=== PATIENT | female | born 1965 | race Caucasian/White ===

== ENCOUNTER 2024-05-14 14:10 | Outpatient (AMB) | payer BC, SELFPAY ==
[2024-05-14 14:11] VITALS: BP 142/74; PULSE 56; O2SAT 98; BMI 21.6
--- NOTE | 2024-05-14 14:11 | HO.NEPHOV_ITS ---
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 Until few years ago she has been enjoying reasonably good health. In 2019 she had COVID-19 infection which was rather severe and subsequently developed hypertension. At present she is on 3 antihypertensive medications including amlodipine 5 mg, losartan 100 mg and HCTZ 25 mg. Recently she underwent a 24 hour ambulatory blood pressure monitoring and she was unable to complete the test because the readings were very high in the range of 190 mm Hg systolic. She has been monitoring her blood pressure at home and has been wide fluctuation. She is using 2 different blood pressure cuffs with a different cuff size and the accuracy of the readings are questionable. She is physically active. She usually runs and recently completed a 5 mi run [facility] Medical History (Updated 05/14/24 @ 14:59 by Alex Brown MD) HTN (hypertension) Leukopenia Surgical History H/O colonoscopy (~05/2019) History of breast lump/mass excision (~08/2012) Family History Mother Hypertension Father Cancer Review of Systems Const Denies fever(s) and Denies weight loss Card Denies chest pain Resp Denies cough and Denies hemoptysis GI Denies abdominal pain, Denies diarrhea and Denies nausea Musc Denies back pain Neuro Denies focal weakness Physical Exam Vital Signs: Last Vital Signs Pulse 56 05/14/24 14:11 BP 142/74 H 05/14/24 14:11 Pulse Ox 98 05/14/24 14:11 Oxygen Delivery Method Room Air 05/14/24 14:11 BMI result Body Mass Index 21.6 Blood pressure 130/70 mm Hg left upper extremity sitting Blood pressure 130/80 right upper extremity sitting and 120/70 right upper extremity standing. Comfortable Neck supple no JVD. Lungs entry equal no rales. Heart S1-S2 heard no gallop or rub. Abdomen soft nontender. Neuro alert awake oriented. No asterixis. Extremities no edema. Results Reviewed Results Reviewed: Lab results were reviewed Nephrology Results: No Data to Display Assessment & Plan Assessment & Plan (1) HTN (hypertension): Code(s): I10 - Essential (primary) hypertension Category: Medical Plan Pleasant 58-year-old woman with hypertension. Based on the office readings today blood pressure is well controlled. However there has been wide fluctuation in the blood pressure. She was unable to complete the 24 hour ambulatory blood pressure monitoring. My recommendation would be to repeat the 24 hour blood pressure monitoring. However she is not keen on varying the bulky monitor again. I will try to set up by [employer] which should be convenient In the meantime I would continue with the current antihypertensive medications. Discussed importance of low-sodium diet. We will await completion of other workup that has been initiated. I have reassured her and we will see her again in the next few weeks Coding Level of Care Code New Pt Level 4 (95581) Diagnoses HTN (hypertension) I10
--- OUTSIDE RECORDS SUMMARY | 2024-05-14 17:57 | XMS_ITS | Clinical Summary ---
Author Organization [facility] Address [id number] [place] [phone] Care Team Providers Care Crane Manager Name Role Phone Kurtis Rae MD Primary Care Provider Surgical History Surgery Date Site/Laterality Comments COLONOSCOPY PROCEDURE:COLONOSCOPY Medical History Medical History Date Comments Hypertension DX:Hypertension Family History Medical History Relation Name Comments Cancer Father Relation Name Status Comments Father Social History Tobacco Use Types Packs/Day Years Used Date Smoking Tobacco: Never Smokeless Tobacco: Never Alcohol Use Standard Drinks/Week Comments Yes 0 (1 standard drink = 0.6 oz pur e alcohol) Sex and Gender Information Value Date Recorded Sex Assigned at Not on file Gender Identity Not on file Sexual Orientation Not on file Job Start Date Occupation Industry Not on file Not on file Not on file Obstetrics History Last Filed Vital Signs Vital Sign Reading Time Taken Comments Blood Pressure 159/74 03/13/2023 3:08 PM EST Sit ting Left arm Pulse 59 03/13/2023 3:08 PM EST Temperature - - Respiratory Rate - - Oxygen Saturation - - Inhaled Oxygen Concentration - - Weight 65.8 kg (145 lb) 03/13/2023 3:08 PM EST Height - - Body Mass Index - - Plan of Treatment Upcoming Encounters Date Type Department Care Team (Late st Contact Info) Description 06/01/2024 10:40 AM EST Office Visit Gastroenterology - [address] [phone] Ramya Jean-Baptiste, GER[place] [address] [facility] [address] [address] Health Maintenance Due Date Last Done Comments DTaP,Tdap,and Td Vaccines (1 - Tdap) 1985 Hepatitis B Vaccines (1 of 3 - 19+ 3-dose series) 1985 Cervical Cancer Screening: P ap Smear 11/09/1987 Zoster Vaccines (1 of 2) 2016 Breast Cancer Screening 08/26/2020 08/26/2018 Cholesterol Screening (Lipid Panel) 03/13/2022 Colorectal Cancer Screening: Colonoscopy 03/13/2022 Depression Screening 03/13/2022 HIV Screening 03/13/2022 Hepatitis C Screening 03/13/2022 Social Influencers of Health Screening 03/13/2022 Hypertension/CHF/CAD Annual BMP Blood Test 05/19/2023 COVID-19 Vaccine (1 - 2023-2 5 season) 2023 Influenza Vaccine (#1) 2023 HIB Vaccines Aged Out No longer eligi ble based on patient's age to complete this topic HPV Vaccines Aged Out No longer eligi ble based on patient's age to complete this topic Hepatitis A Vaccines Aged Out No long er eligible based on patient's age to complete this topic IPV Vaccines Aged Out No longer eligi ble based on patient's age to complete this topic MMR Vaccines Aged Out No longer eligi ble based on patient's age to complete this topic Meningococcal ACWY Vaccine Aged Out N o longer eligible based on patient's age to complete this topic Pneumococcal Vaccine: Pediat rics (0 to 5 Years) and At-Risk Patients (6 to 64 Years) Aged Out No longer eligi ble based on patient's age to complete this topic RSV Immunization Patients Un sona 20 months Aged Out No longer eligible b ased on patient's age to complete this topic Varicella Vaccines Aged Out No longer eligible based on patient's age to complete this topic Procedures Procedure Name Priority Date/Time Associated Diagnosis Comments EXTERNAL ULTRASOUND REPORT 04/29/2024 ROBE SCREENING DIGITAL Routine 08/26/2018 1:43 PM EDT Encounter for screening mammogram for malignant neoplasm of breast from Last 3 Months or Most Recently Relevant to Health Maintenance Results * External Ultrasound Report (04/29/2024) Anatomical Region Laterality Modality Ultrasound Provider [facility] US PROCEDURE S * ROBE SCREENING DIGITAL (08/26/2018 1:43 PM EDT) Anatomical Region Laterality Modality Mammography 08/26/2018 11:2 0 AM EDT Narrative 08/26/2018 1:43 PM EDT [facility] Diagnostic Imaging Department [address] [place] [id number] Patient: ??CHRIS TEJADA ?/Age/Sex: 1965 - 52 - F Unit#: ??[id number] ? Location/Status: ??SPDIMAM/REG CLI ? Mnemonic/Ordering Site: ??DIGSC/SPMAM Ordering Physician: ??AVNI KOVACS MD [facility] Screening Digital - 08/26/18 - 1148 EXAM: [facility] Screening Digital EXAM DATE AND TIME: 08/26/2018 11:48 AM HISTORY: ??Screening. Right breast biopsy in 2012, pathology benign. COMPARISON: ??01/07/17, 08/04/15, 06/10/14 TECHNIQUE: CC and MLO views of both breasts were obtained using full field digital mammography. Bilateral digital breast tomosynthesis was performed in the MLO projection. 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 TISSUE DENSITY: c. The breasts are heterogeneously dense, which may obscure small masses. FINDINGS: No suspicious masses, grouped microcalcifications, or areas of architectural distortion are seen. Scattered microcalcifications are seen in the anterior aspects of both breasts. The skin and vascularity are unremarkable. IMPRESSION: Stable mammographic appearance of the breasts. ??No evidence of malignancy is seen. A negative mammogram in the presence of a clinically suspicious palpable abnormality does not preclude the possibility of malignancy or alter the indications for biopsy. BI-RADS: ??Category 2: Benign RECOMMENDATION(S): 1: Routine screening mammogram BILATERAL in 1 year. 43593, 55369 3342F, 7020F Dictating Physician: ??BARBIE RODAS MD Electronically Signed by: ??BARBIE RODAS MD Dic Date/Time: ??08/26/18 1342 Sign date/Time: ??08/26/18 1343 Procedure Note Barbie Rodas MD - 04/03/2022 [facility] Diagnostic Imaging Department [address] [place] [address] Patient: CHRIS TEJADA LOUISE /Age/Sex: 1965 - 52 - F Unit#: [id number] Location/Status: [facility] Mnemonic/Ordering Site: [facility] Ordering Physician: AVNI KOVACS MD [facility] Screening Digital - 08/26/18 - 1148 EXAM: [facility] Screening Digital EXAM DATE AND TIME: 08/26/2018 11:48 AM HISTORY: Screening. Right breast biopsy in 2012, pathology benign. COMPARISON: 01/07/17, 08/04/15, 06/10/14 TECHNIQUE: CC and MLO views of both breasts were obtained using fullfield digital mammography. Bilateral digital breast tomosynthesis was performedin the MLO projection. 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 TISSUE DENSITY: c. The breasts are heterogeneously dense, which mayobscure small masses. FINDINGS: No suspicious masses, grouped microcalcifications, or areas ofarchitectural distortion are seen. Scattered microcalcifications are seen in theanterior aspects of both breasts. The skin and vascularity are unremarkable. IMPRESSION: Stable mammographic appearance of the breasts. No evidence of malignancyis seen. A negative mammogram in the presence of a clinically suspicious palpable abnormality does not preclude the possibility of malignancy or alter the indications for biopsy. BI-RADS: Category 2: Benign RECOMMENDATION(S): 1: Routine screening mammogram BILATERAL in 1 year. 25019, [id number] 3342F, 7025F Dictating Physician: BARBIE RODAS MD Electronically Signed by: BARBIE RODAS MD Dic Date/Time: 08/26/18 1342 Sign date/Time: 08/26/18 1343 Avni Kovacs MD IMG BI PROCEDURES from Last 3 Months or Most Recently Relevant to Health Maintenance Care Teams Crane Manager Relationship Specialty Start Date End Date Kurtis Rae MD [address] [place] [id number] PCP - General Internal Medicine 05/13/24
--- OUTSIDE RECORDS SUMMARY | 2024-05-14 17:57 | XMS_ITS | Clinical Summary ---
Author Organization [facility] Address [address] [place] [address] Care Team Providers Care Screwhead Polisher Name Role Phone Kurtis Rae MD Primary Care Provider Allergies No known active allergies Medications Medication Sig Dispensed Refills Start Date End Date Status hydroCHLOROthiazide (HYDRODIURIL) tablet 25 mg 0 02/20/2021 Active losartan (COZAAR) 100 MG tablet 0 02/14/2021 Active amLODIPine (NORVASC) tablet 5 mg Take 1 tablet (5 mg total) by mouth daily. 0 Active Active Problems Problem Noted Date Diagnosed Date Leukopenia 03/13/2023 Arthralgia of both hands 03/13/2023 Essential hypertension 06/07/2020 Family History Medical History Relation Name Comments Cancer Father Relation Name Status Comments Father Social History Tobacco Use Types Packs/Day Years Used Date Smoking Tobacco: Never Smokeless Tobacco: Never Alcohol Use Standard Drinks/Week Comments Yes 0 (1 standard drink = 0.6 oz pur e alcohol) socially Sex and Gender Information Value Date Recorded Sex Assigned at Not on file Gender Identity Not on file Sexual Orientation Not on file Job Start Date Occupation Industry Not on file Not on file Not on file Last Filed Vital Signs Vital Sign Reading Time Taken Comments Blood Pressure 159/74 03/13/2023 3:08 PM EST Pulse 59 03/13/2023 3:08 PM EST Temperature 36.7 ??C (98.1 ??F) 03/13/2023 3:08 PM ES T Respiratory Rate - - Oxygen Saturation 100% 03/13/2023 3:08 PM EST Inhaled Oxygen Concentration - - Weight 65.8 kg (145 lb) 03/13/2023 3:08 PM EST Height 176.5 cm (5' 9.5 ) 03/27/2021 11:37 AM ES T Body Mass Index 21.11 03/27/2021 11:37 AM EST Plan of Treatment Health Maintenance Due Date Last Done Comments Hepatitis B Vaccines (1 of 3 - 3-dose series) 1965 Hepatitis C Screening 1965 COVID-19 Vaccine (#1) 05/11/1967 Depression Screening 1978 Preventative Health Evaluation 1984 DTap / Tdap / Td (1 - Tdap) 1985 Cervical Cancer Screening (P ap Smear) 11/09/1987 Colon Cancer Screening (Colonoscopy) 11/09/2011 Breast Cancer Screening (Mammogram) 2016 Shingrix-Zoster Vaccine (1 of 2) 2016 Influenza Vaccine (#1) 2023 Pneumococcal Vaccine Aged Out No long er eligible based on patient's age to complete this topic RSV Ped < 20 months Aged Out No longe r eligible based on patient's age to complete this topic Care Teams Screwhead Polisher Relationship Specialty Start Date End Date Kurtis Rae MD [address] [facility] [address] [place] [address] PCP - General Internal Medicine 02/21/21
--- OUTSIDE RECORDS SUMMARY | 2024-05-14 17:57 | XMS_ITS | Clinical Summary ---
Author Organization [facility] Address [address] [facility] [phone] Phone Care Team Providers Care Manager Maritime Name Role Phone Kurtis Rae MD Primary Care Provider Allergies No known active allergies Medications losartan (COZAAR) 100 MG tablet Take 1 tablet by mouth 1 (one) time each day 02/14/2021 Active hydroCHLOROthia zide 25 MG tablet Take 0.5 tablets by mouth 1 (one) time each day 02/20/2021 Active Active Problems Problem Noted Date Diagnosed Date Hypertension 01/17/2021 Essential hypertension 06/07/2020 Family History Medical History Relation Comments Cancer Father Hypertension Mother Relation Status Comments Father Mother Social History Tobacco Use Types Packs/Day Years Used Date Smoking Tobacco: Never Smokeless Tobacco: Never Tobacco Cessation:Counseling Given: Not Answered Alcohol Use Standard Drinks/Week Comments Yes 0 (1 standard drink = 0.6 oz pure alcohol) Alcoholic Drinks/day: Occasional social drink Comments Unknown Sex and Gender Information Value Date Recorded Sex Assigned at Not on file Legal Sex Female 4:58 PM EST Gender Identity Not on file Sexual Orientation Not on file Last Filed Vital Signs Vital Sign Reading Time Taken Comments Blood Pressure 140/80 01/01/2022 2:46 PM EDT Pulse 60 01/17/2021 3:12 PM EDT Temperature - - Respiratory Rate - - Oxygen Saturation 96% 09/06/2020 2:13 PM EDT Inhaled Oxygen Concentration - - Weight 70.1 kg (154 lb 9.6 oz) 01/01/2022 2:46 P M EDT Height 175.3 cm (5' 9 ) 05/03/2020 12:00 PM EST Body Mass Index 22.83 05/03/2020 12:00 PM EST Plan of Treatment Health Maintenance Due Date Last Done Comments Breast Cancer Screening 1965 Hepatitis B Vaccine (1 of 3 - 19+ 3-dose series) 1985 Colorectal Cancer Screening: Annual FOBT 11/09/2015 Colorectal Cancer Screening: Colonoscopy 11/09/2015 Colorectal Cancer Screening: Sigmoidoscopy 11/09/2015 Influenza Vaccine (#1) 2023 Pneumococcal Vaccine: Pediat rics (0 to 5 Years) and At-Risk Patients (6 to 64 Years) Aged Out No longer eligible b ased on patient's age to complete this topic Insurance [facility] Care Teams Manager Maritime Relationship Specialty Start Date End Date Kurtis Rae MD [address] [facility] [place] [address] PCP - General Internal Medicine 06/07/20
== END 2024-05-14 14:40 | disposition home or self-care (01) ==
PROVIDERS: PCP Internal Medicine; Referring Provider Internal Medicine; Visit Provider Internal Medicine Hypertension Specialist
DX: I10 Essential (primary) hypertension (principal)
CPT/HCPCS: 99204

== ENCOUNTER → 2024-05-14 14:10 | Outpatient (BNVA) | payer BC, SELFPAY | PROVIDERS: PCP Internal Medicine; Referring Provider Internal Medicine; Visit Provider Internal Medicine Hypertension Specialist ==

== ENCOUNTER 2024-07-02 10:20 | Outpatient (AMB) | payer BC, SELFPAY ==
--- NOTE | 2024-07-02 10:22 | HO.NEPHOV ---
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 Until few years ago she has been enjoying reasonably good health. In 2019 she had COVID-19 infection which was rather severe and subsequently developed hypertension. At present she is on 3 antihypertensive medications including amlodipine 5 mg, losartan 100 mg and HCTZ 25 mg. Recently she underwent a 24 hour ambulatory blood pressure monitoring and she was unable to complete the test because the readings were very high in the range of 190 mm Hg systolic. She has been monitoring her blood pressure at home and has been wide fluctuation. She is using 2 different blood pressure cuffs with a different cuff size and the accuracy of the readings are questionable. She is physically active. She usually runs and recently completed a 5 mi run 07/02/2024. [place] has been taking amlodipine losartan and hydrochlorothiazide in the morning. She goes for run in the morning and she has been experiencing lightheadedness. She has monitored her blood pressure at home and no documented hypotensive episodes. She had a mechanical fall while running but this was not associated with lightheadedness. [facility] Medical History (Updated 05/14/24 @ 14:59 by Alex Brown MD) HTN (hypertension) Leukopenia Surgical History H/O colonoscopy (~05/2019) History of breast lump/mass excision (~08/2012) Family History Mother Hypertension Father Cancer Physical Exam Vital Signs: Last Vital Signs Pulse 66 07/02/24 10:23 BP 132/60 07/02/24 10:23 Pulse Ox 98 07/02/24 10:23 Oxygen Delivery Method Room Air 07/02/24 10:23 BMI result Body Mass Index 21.6 Supine blood pressure 120/70 Sitting blood pressure 120/60 standing blood pressure 120/60. Asymptomatic Comfortable Neck supple no JVD. Lungs entry equal no rales. Heart S1-S2 heard no gallop or rub. Abdomen soft nontender. Neuro alert awake oriented. No asterixis. Extremities no edema. Results Reviewed Nephrology Results: No Data to Display Assessment & Plan Assessment & Plan (1) HTN (hypertension): Code(s): I10 - Essential (primary) hypertension Category: Medical Plan Pleasant 58-year-old woman with hypertension. Based on the office readings today blood pressure is well controlled. However there has been wide fluctuation in the blood pressure. She was unable to complete the 24 hour ambulatory blood pressure monitoring. My recommendation would be to repeat the 24 hour blood pressure monitoring. However she is not keen on varying the bulky monitor again. I will try to set up by [employer] which should be convenient I am still waiting for the approval of [employer]. In the meantime I would continue with the current antihypertensive medications. I would suggest to switch losartan to be taken in the evening rather than in the morning ; continue with the amlodipine and HCTZ in the morning. This would help to minimize the drop in blood pressure when she is running Coding Level of Care Code Est Pt Level 3 (37662) Diagnoses HTN (hypertension) I10
[2024-07-02 10:23] VITALS: BP 132/60; PULSE 66; O2SAT 98; BMI 21.6
--- OUTSIDE RECORDS SUMMARY | 2024-07-02 11:45 | XMS_ITS | Clinical Summary ---
Author Organization [facility] Address [address] [place] [address] Care Team Providers Care Banbury Mill Operator Name Role Phone Kurtis Rae MD Primary [...] age to complete this topic Care Teams Banbury Mill Operator Relationship Specialty Start Date End Date Kurtis Rae MD [address] [facility] [address] [place] [address] PCP - General Internal Medicine 02/21/21
--- OUTSIDE RECORDS SUMMARY | 2024-07-02 11:45 | XMS_ITS | Clinical Summary ---
Author Organization [facility] Address [address] [place] [address] Phone Care Team Providers Care Reflector Driller And Deburrer Name Role Phone Kurtis Rae MD Primary Care Provider Allergies No known active allergies Encounters Date Type Department Care Team Description 06/01/2024 10:40 AM EST Office Visit Gastroenterology - [address] [address] Ramya Jean-Baptiste, GERRI Liver lesion (Primary Dx) from Last 3 Months Surgical History Surgery Date Site/Laterality Comments COLONOSCOPY PROCEDURE:COLONOSCOPY Medical History Medical History Date Comments Hypertension DX:Hypertension Family History Medical History Relation Name Comments Cancer Father Relation Name Status Comments Father Social History Tobacco Use Types Packs/Day Years Used Date Smoking Tobacco: Never Smokeless Tobacco: Never Alcohol Use Standard Drinks/Week Comments Yes 0 (1 standard drink = 0.6 oz pur e alcohol) Comments Unknown Sex and Gender Information Value Date Recorded Sex Assigned at Not on file Legal Sex Female 11:58 AM EST Gender Identity Not on file Sexual Orientation Not on file Obstetrics History Last Filed Vital Signs Vital Sign Reading Time Taken Comments Blood Pressure 159/74 03/13/2023 3:08 PM EST Sitting Left arm Pulse 59 03/13/2023 3:08 PM EST Temperature - - Respiratory Rate - - Oxygen Saturation - - Inhaled Oxygen Concentration - - Weight 67.3 kg (148 lb 6.4 oz) 06/01/2024 10:47 AM EST Height 175.3 cm (5' 9 ) 06/01/2024 10:4 7 AM EST Body Mass Index 21.91 06/01/2024 10:47 AM EST Plan of Treatment Health Maintenance Due Date Last Done Comments DTaP,Tdap,and Td Vaccines (1 - Tdap) 1985 Hepatitis B Vaccines (1 of 3 - 19+ 3-dose series) 1985 Pneumococcal Vaccine: 50+ Years (1 of 2 - PCV) 1985 Pneumococcal Vaccine: Pediatrics (0 to 5 Years) and At-Risk Patients (6 to 64 Years) (1 of 2 - PCV) 1985 Cervical Cancer Screening: Pap Smear 11/09/1987 Breast Cancer Screening 08/26/2020 08/26/2018, 08/03 Zoster Vaccines (2 of 2) 03/19/2021 01/22/2021 Cholesterol Screening (Lipid Panel) 03/13/2022 Depression Screening 03/13/2022 HIV Screening 03/13/2022 Hepatitis C Screening 03/13/2022 Social Influencers of Health Screening 03/13/2022 Hypertension/CHF/CAD Annual BMP Blood Test 05/19/2023 COVID-19 Vaccine ( season) 2023 08/21/2021, 08/11/2020, 07/14/2020, Additional history exists Influenza Vaccine (#1) 2023 Colorectal Cancer Screening: Colonoscopy 05/20/2029 05/20/2019 HIB Vaccines Aged Out No longer eligi [...] patient's age to complete this topic Meningococcal B Vacine Aged Out No lo nger eligible based on patient's age to complete this topic RSV Immunization Patients Under 20 months Aged Out No longer eligible based on patient's age to complete this topic Varicella Vaccines Aged Out No longer eligible based on patient's age to complete this topic Procedures Procedure Name Priority Date/Time Associated Diagnosis Comments EXTERNAL ULTRASOUND REPORT 04/29/2024 COLONOSCOPY Routine 05/20/2019 3:18 PM EST TARA SCREENING DIGITAL Routine 08/26/2018 1:43 PM EDT Encounter for screening mammogram for malignant neoplasm of breast from Last 3 Months or Most Recently Relevant to Health Maintenance Results * External Ultrasound Report (04/29/2024) Anatomical Region Laterality Modality Ultrasound us Provider [facility] IMG US PROCEDURES Final Result * COLONOSCOPY (05/20/2019 3:18 PM EST) Anatomical Region Laterality Modality Endoscopy Historical Provider MD VILLEDA~PROCEDURE ORDERABLES F inal Result * [facility] SCREENING DIGITAL (08/26/2018 1:43 PM EDT) Anatomical Region Laterality Modality Mammography 08/26/2018 11:2 0 AM EDT Narrative 08/26/2018 1:[address] [facility] Diagnostic Imaging Department [address] [place], [place] [id number] Patient: ??CAPRI TEJADAE ?/Age/Sex: 1965 - 52 - F Unit#: ??[id number] ? Location/Status: ??SPDIMAM/REG CLI ? Mnemonic/Ordering Site: ??DIGSC/SPMAM Ordering Physician: ??MAC KOVACS MD Tara Screening Digital - 08/26/18 - 1148 EXAM: [facility] Screening Digital EXAM DATE AND TIME: 08/26/2018 11:48 AM HISTORY: ??Screening. Right breast biopsy in 2013, pathology benign. COMPARISON: ??01/07/17, 08/04/15, 06/10/14 TECHNIQUE: CC and MLO views of both breasts were obtained using full field digital mammography. Bilateral digital breast tomosynthesis was performed in the MLO projection. Computer aided detection with the ComVibe 7.2-H was employed. TISSUE DENSITY: c. The [...] Routine screening mammogram BILATERAL in 1 year. [address]756, 73198 3342F, 7025F Dictating Physician: ??BARBIE RODAS MD Electronically Signed by: ??BARBIE RODAS MD Dic Date/Time: ??08/26/18 1342 Sign date/Time: ??08/26/18 1343 Procedure Note Barbie Rodas MD - 04/03/2022 [facility] Diagnostic Imaging Department [address] [place] [address] Patient: TERRELLGINO /Age/Sex: 1965 - 52 - F Unit#: [id number] [facility] CLI Mnemonic/Ordering Site: [facility] Ordering Physician: MAC KOVACS MD [facility] Screening Digital - 08/26/18 - 1148 EXAM: [facility] Screening Digital EXAM DATE AND TIME: 08/26/2018 11:48 AM HISTORY: Screening. Right breast biopsy in 2012, pathology benign. COMPARISON: 01/07/17, 08/04/15, 06/10/14 TECHNIQUE: CC and MLO views of both breasts were obtained using fullfield digital mammography. Bilateral digital breast tomosynthesis was performedin the MLO projection. Computer aided detection with the OOYYO.2-X2IMPACTas employed. TISSUE DENSITY: c. The breasts are [...] Routine screening mammogram BILATERAL in 1 year. 18517, 78898 3342F, 7025F Dictating Physician: BARBIE RODAS MD Electronically Signed by: BARBIE RODAS MD Dic Date/Time: 08/26/18 1342 Sign date/Time: 08/26/18 1343 Mac Kovacs MD IMG BI PROCEDURES Final Result from Last 3 Months or Most Recently Relevant to Health [place] [id number] [facility] Care Teams Reflector Driller And Deburrer Relationship Specialty Start Date End Date Kurtis Rae MD [address] [place] [address] PCP - General Internal Medicine 05/13/24
--- OUTSIDE RECORDS SUMMARY | 2024-07-02 11:45 | XMS_ITS | Continuity of Care Document ---
Author Organization [facility] Address [address] [place] [address]- Care Team Providers Care Subgrade Roller Operator Name Role Phone Kurtis Rae MD Primary Care Physician Encounter [facility] Date(s): 05/26/24 - 06/25/24 [facility] [address] [place], [place] [address] Attending Physician: Admtr, Ar8 Admitting Physician: Admtr Ar8 Referring Physician: Admtr, Ar8 Encounter Type: Triage Allergies, Adverse Reactions, Alerts No Known Allergies Patient Care team information Care Team Personnel Name: Kurtis Rae MD Position: [facility] Outreach Member Role: PCP Address: [address] [place] [address] Telecom: Care Team Related Persons Name: PANCHO TEJADA Insurance Providers Guarantor name: CHRIS TEJADA Health Plan Information #: 1 Payer: HMO BLUE IN NETWORK Member Number: NA Policy Number: NA Group Number: NA
--- OUTSIDE RECORDS SUMMARY | 2024-07-02 11:46 | XMS_ITS | Clinical Summary ---
Author Organization [facility] Address [address] [facility] [address] [place] [address] Phone Care Team Providers Care Security Program Manager Name Role Phone Kurtis Rae MD [...] patient's age to complete this topic Insurance [facility] Care Teams Security Program Manager Relationship Specialty Start Date End Date Kurtis Rae MD [address] [facility] [place] [address] PCP - General Internal Medicine 06/07/20
== END 2024-07-02 10:46 | disposition home or self-care (01) ==
LOC: HO.HKA 10:21
PROVIDERS: PCP Internal Medicine; Visit Provider Internal Medicine Hypertension Specialist
DX: I10 Essential (primary) hypertension (principal)
CPT/HCPCS: 99213

== ENCOUNTER 2024-11-10 10:41 | Outpatient (AMB) | payer BC, SELFPAY ==
[2024-11-10 10:48] VITALS: BP 174/66; PULSE 64; O2SAT 99; BMI 21.0
--- NOTE | 2024-11-10 10:48 | HO.NEPHOV_ITS ---
Vital Signs 11/10/24 10:48 Height 5 ft 9 in Weight 142 lb BMI 21.0 BP 174/66 H Blood Pressure Location Rt brachial Position Sitting Pulse 64 Pulse Source Pulse Oximeter Pulse Oximetry (%) 99 Oxygen Delivery Method Room Air Intake Visit Reasons: FU Boiler/Chiller Operator Required: No Accompanied by: Self / Same As Patient Allergies No Known Allergies Allergy (Verified 11/10/24 10:54) Medication List - Last Reconciled 11/10/24 by Alex Brown MD amlodipine 5 mg PO DAILY hydrochlorothiazide 25 mg PO DAILY losartan 100 mg PO DAILY magnesium oxide 400 mg PO DAILY HPI Comments Details: 58-year-old woman with history of hypertension. Until few years ago she has been enjoying reasonably good health. In 2019 she had COVID-19 infection which was rather severe and subsequently developed hypertension. At present she is on 3 antihypertensive medications including amlodipine 5 mg, losartan 100 mg and HCTZ 25 mg. Recently she underwent a 24 hour ambulatory blood pressure monitoring and she was unable to complete the test because the readings were very high in the range of 190 mm Hg systolic. She has been monitoring her blood pressure at home and has been wide fluctuation. She is using 2 different blood pressure cuffs with a different cuff size and the accuracy of the readings are questionable. She is physically active. She usually runs and recently completed a 5 mi run 07/02/2024. Capri has been taking amlodipine losartan and hydrochlorothiazide in the morning. She goes for run in the morning and she has been experiencing lightheadedness. She has monitored her blood pressure at home and no documented hypotensive episodes. She had a mechanical fall while running but this was not associated with l ightheadedness. 11/10/2024 Overall doing well. Home blood pressure readings are acceptable. Office readings elevated today. She has been taking HCTZ losartan and amlodipine in the morning [facility] Medical History (Updated 05/14/24 @ 14:59 by Alex Brown MD) HTN (hypertension) Leukopenia Surgical History H/O colonoscopy (~05/2019) History of breast lump/mass excision (~08/2012) Family History Mother Hypertension Father Cancer Physical Exam Vital Signs: Last Vital Signs Pulse 64 11/10/24 10:48 BP 174/66 H 11/10/24 10:48 Pulse Ox 99 11/10/24 10:48 Oxygen Delivery Method Room Air 11/10/24 10:48 BMI result Body Mass Index 21.0 Comfortable Neck supple no JVD. Lungs entry equal no rales. Heart S1-S2 heard no gallop or rub. Abdomen soft nontender. Neuro alert awake oriented. No asterixis. Extremities no edema. Assessment & Plan Assessment & Plan (1) HTN (hypertension): Code(s): I10 - Essential (primary) hypertension Category: Medical Plan Pleasant 58-year-old woman with hypertension. Based on the office readings today blood pressure is well controlled. However there has been wide fluctuation in the blood pressure. She was unable to complete the 24 hour ambulatory blood pressure monitoring. My recommendation would be to repeat the 24 hour blood pressure monitoring. However she is not keen on varying the bulky monitor again. I will try to set up by [facility] which should be convenient I am still waiting for the approval of [employer] [facility]. In the meantime I would continue with the current antihypertensive medications. I would suggest to switch losartan to be taken in the evening rather than in the morning ; continue with the amlodipine and HCTZ in the morning. This would help to minimize the drop in blood pressure when she is running 11/10/2024. Obtain 24 hour blood pressure monitoring with by beat and we will decide on antihypertensive medications. Orders: Orders AMB 24 HR B/P Monitor PLACEMENT Today I10 - Essential (primary) hypertension Coding Level of Care Code Est Pt Level 4 (02348) Diagnoses HTN (hypertension) I10
--- OUTSIDE RECORDS SUMMARY | 2024-11-10 11:49 | XMS_ITS | Clinical Summary ---
Author Organization [facility] Address [address] [facility] [address] [place] [address] Phone Care Team Providers Care [place] Seamer Name Role Phone Kurtis Rae MD Primary Care Provider [phone] Allergies No known active allergies Medications losartan [...] (1 of 3 - 19+ 3-dose series) 11/08 Colorectal Cancer Screening: Annual FOBT 11/09/2015 Colorectal Cancer Screening: Colonoscopy 11/09/2015 Colorectal Cancer Screening: Sigmoidoscopy 11/09/2015 Pneumococcal Vaccine: 50+ Years (1 of 1 - PCV) 017 Influenza Vaccine (#1) 2024 Insurance [facility] Care Teams [place] Seamer Relationship Specialty Start Date End Date Kurtis Rae MD [address] [place] [address] PCP - General Internal Medicine 06/07/20
--- OUTSIDE RECORDS SUMMARY | 2024-11-10 11:49 | XMS_ITS | Clinical Summary ---
Author Organization [facility] Address [address] [place] [address] Phone Care Team Providers Care Supervisor Carbon Paper Coating Name Role Phone Kurtis Rae MD Primary Care Provider Social History Tobacco Use Types Packs/Day Years Used Date Smoking Tobacco: Never Assessed Comments Unknown Sex and Gender Information Value Date Recorded Sex Assigned at Not on file Legal Sex Female 7:58 PM EST Gender Identity Not on file Sexual Orientation Not on file Plan of Treatment Not on file Medical Devices Not on file Insurance [facility] [employer] [facility] H[facility] POS [employer] [facility] HMO [place] BL[place] Care Teams Supervisor Carbon Paper Coating Relationship Specialty Start Date End Date Kurtis Rae MD [address] [place] [address] PCP - General 10/13/13 Additional Source Comments The information contained in this document represents components of the legal health record. It is not the complete legal health record.[facility]
--- OUTSIDE RECORDS SUMMARY | 2024-11-10 11:49 | XMS_ITS | Clinical Summary ---
Author Organization [facility] Address [address] [place] [address] Care Team Providers Care Call Center Support Consultant Name Role Phone Kurtis Rae MD Primary Care Provider [phone] Allergies No known active allergies Medications Medication [...] 59 03/13/2023 3:08 PM EST Temperature 36.7 C (98.1 F) 03/13/2023 3:08 PM EST Respiratory Rate - - Oxygen Saturation 100% [...] (1 of 2) 2016 Influenza Vaccine (#1) 2024 Pneumococcal Vaccine Aged Out No long er eligible based on patient's age to complete this topic RSV Ped < 20 months Aged Out No longe r eligible based on patient's age to complete this topic Care Teams Call Center Support Consultant Relationship Specialty Start Date End Date Kurtis Rae MD [address] [facility] [address] [place] [address] PCP - General Internal Medicine 02/21/21
--- OUTSIDE RECORDS SUMMARY | 2024-11-10 11:49 | XMS_ITS | Clinical Summary ---
Author Organization [facility] Address [address] [place] [address] Phone Care Team Providers Care Photoresist Contact Printer Name Role Phone Kurtis Rae MD Primary Care Provider Allergies No known active allergies Encounters Date Type Department Care Team Description 10/05/2024 Telephone Gastroenterology - [address] [address] Stefany Min MD MISSING INFORMATION from Last 3 Months Surgical History Surgery [...] Years (1 of 2 - PCV) 1985 Cervical Cancer Screening: Pap Smear 11/09/1987 Breast Cancer Screening 08/26/2020 08/26/2018, 08/03 Zoster Vaccines (2 of 2) 03/19/2021 01/22/2021 Cholesterol Screening (Lipid Panel) 03/13/2022 HIV Screening 03/13/2022 Hepatitis C Screening 03/13/2022 Social Influencers of Health Screening 03/13/2022 Hypertension/CHF/CAD Annual BMP Blood Test 05/19/2023 COVID-19 Vaccine ( season) 2023 08/21/2021, 08/11/2020, 07/14/2020, Additional history exists Depression Screening 04/15/2024 Influenza Vaccine (#1) 2024 Colorectal Cancer Screening: Colonoscopy 05/20/2029 05/20/2019 HIB [...] age to complete this topic Meningococcal B Vaccine Aged Out No l onger eligible based on patient's age to complete this topic RSV Immunization Patients Under 20 months Aged Out No longer eligible based on patient's age to complete this topic Varicella Vaccines Aged Out No longer eligible based on patient's age to complete this topic Procedures Procedure Name Priority Date/Time Associated Diagnosis Comments COLONOSCOPY Routine 05/20/2019 3:18 PM EST ROBE SCREENING DIGITAL Routine 08/26/2018 1:43 PM EDT Encounter for screening mammogram for malignant neoplasm of breast from Last 3 Months or Most Recently Relevant to Health Maintenance Results * COLONOSCOPY (05/20/2019 3:18 PM EST) Anatomical Region Laterality Modality Endoscopy us Historical Provider GI~PROCEDURE ORDERABLES F inal Result * [facility] SCREENING DIGITAL (08/26/2018 1:43 PM EDT) Anatomical Region Laterality Modality Mammography 08/26/2018 11:2 0 AM EDT Narrative 08/26/2018 1:43 PM EDT [facility] Diagnostic Imaging Department [address] [place] [address] Patient: CHRIS TEJADA /Age/Sex: 1965 - 52 - F Unit#: [id number] Location/Status: [facility] CLI [facility]: AVNI KOVACS MD [facility] Screening Digital - 08/26/18 - 1148 EXAM: [facility] Screening Digital EXAM DATE AND TIME: 08/26/2018 11:48 AM HISTORY: Screening. Right breast biopsy in 2012, pathology benign. COMPARISON: 01/07/17, 08/04/15, 06/10/14 TECHNIQUE: CC and MLO views of both breasts were obtained using full field digital mammography. Bilateral digital breast tomosynthesis was performed in the MLO projection. Computer aided detection with the Cannae 7.2-H was employed. TISSUE DENSITY: c. The breasts are heterogeneously dense, which may obscure small masses. FINDINGS: No suspicious masses, grouped microcalcifications, or areas of architectural distortion are seen. Scattered microcalcifications are seen in the anterior aspects of both breasts. The skin and vascularity are unremarkable. IMPRESSION: Stable mammographic appearance of the breasts. No evidence of malignancy is seen. A negative mammogram in the presence of a clinically suspicious palpable abnormality does not preclude the possibility of malignancy or alter the indications for biopsy. BI-RADS: Category 2: Benign RECOMMENDATION(S): 1: Routine screening mammogram BILATERAL in 1 year. [address]2487, 14942 3342F, 7025F Dictating Physician: BARBIE RODAS MD Electronically Signed by: BARBIE RODAS MD Dic Date/Time: 08/26/18 1342 Sign date/Time: 08/26/18 1343 Procedure Note Barbie Rodas MD - 04/03/2022 [facility] Diagnostic Imaging Department [address] [place] [address] Patient: CHRIS TEJADA /Age/Sex: 1965 - 52 - F Unit#: [id number] Location/Status: [facility] Mnemonic/Ordering Site: [facility] Ordering Physician: AVNI KOVACS MD [facility] Screening Digital - 08/26/18 - 1148 EXAM: [facility] Screening Digital EXAM DATE AND TIME: 08/26/2018 11:48 AM HISTORY: Screening. Right breast biopsy in 2012, pathology benign. COMPARISON: 01/07/17, 08/04/15, 06/10/14 TECHNIQUE: CC and MLO views of both breasts were obtained using fullfield digital mammography. Bilateral digital breast tomosynthesis was performedin the MLO projection. Computer aided detection with the [employer] 7.2-Hwas employed. TISSUE DENSITY: c. The breasts [...] Routine screening mammogram BILATERAL in 1 year. 23438, 69209 3342F, 7025F Dictating Physician: BARBIE RODAS MD Electronically Signed by: BARBIE RODAS MD Dic Date/Time: 08/26/18 1342 Sign date/Time: 08/26/18 1343 Avni Kovacs MD IMG BI PROCEDURES Final Result from Last 3 Months or Most Recently Relevant to Health Maintenance Insurance [facility] Care Teams Photoresist Contact Printer Relationship Specialty Start Date End Date Kurtis Rae MD [address] [place] [address] PCP - General Internal Medicine 05/13/24
== END 2024-11-10 11:20 | disposition home or self-care (01) ==
LOC: HO.HKA 10:43
PROVIDERS: PCP Internal Medicine; Visit Provider Internal Medicine Hypertension Specialist
DX: I10 Essential (primary) hypertension (principal)
CPT/HCPCS: 99214

== ENCOUNTER → 2024-11-11 10:50 | Outpatient (BNVA) | payer BC, SELFPAY | PROVIDERS: PCP Internal Medicine; Visit Provider Internal Medicine Hypertension Specialist | DX: I10 Essential (primary) hypertension (principal) | CPT/HCPCS: 93786; 93788 ==

== ENCOUNTER 2024-11-25 11:28 | Outpatient (AMB) | payer BC, SELFPAY ==
--- NOTE | 2024-11-25 11:29 | A.OFFVIS_ITS ---
Intake Visit Reasons: Hypertension Allergies No Known Allergies Allergy (Verified 11/10/24 10:54) HPI Comments Details: Follow up for hypertension PFSH Medical History (Updated 05/14/24 @ 14:59 by Alex Brown MD) HTN (hypertension) Leukopenia Surgical History H/O colonoscopy (~05/2019) History of breast lump/mass excision (~08/2012) Family History Mother Hypertension Father Cancer Office Procedures 24 B/P Monitor Interpretation Details: Day time Average Night time Average 24 hr Average Well controlled HTN No change in meds NO [facility] CPT: 39545 24 Hour Blood Pressure Monitor Reading Procedure code (CPT) selection complete Telehealth Telehealth Telehealth Platform: Telephone Location of patient: other Telehealth method: voice only Patient verbally consented to treatment: Yes Patient verbally consented to billing insurance company: Yes Patient informed of any privacy concerns related to visit: Yes Minutes spent on Phone/Video with Pt.: 5 Results Reviewed Results Reviewed: ABP and results reviewed Assessment & Plan Assessment & Plan (1) HTN (hypertension): Code(s): I10 - Essential (primary) hypertension Category: Medical Plan Switch to Exforge HCT Orders: Orders AMB 24 HR B/P Monitor INTERPRETATION 11/11/24 I10 - Essential (primary) hypertension Coding Level of Care Code Est Pt Level 2 (97120) Diagnoses HTN (hypertension) I10 CPT Codes - CPT: 74042 24 Hour Blood Pressure Monitor Reading ([id number]) Time Spent (min) 9
--- OUTSIDE RECORDS SUMMARY | 2024-11-25 12:28 | XMS_ITS | Clinical Summary ---
Author Organization [facility] Address [address] [place] [address] Care Team Providers Care Talking Books Library Clerk Name Role Phone Kurtis Rae MD Primary [...] age to complete this topic Care Teams Talking Books Library Clerk Relationship Specialty Start Date End Date Kurtis Rae MD [address] [facility] [address] [place] [address] PCP - General Internal Medicine 02/21/21
--- OUTSIDE RECORDS SUMMARY | 2024-11-25 12:28 | XMS_ITS | Clinical Summary ---
Author Organization [facility] Address [address] [facility] [address] [place] [address] Phone Care Team Providers Care Catholic Priest Name Role Phone Kurtis Rae MD Primary [...] PCV) 017 Influenza Vaccine (#1) 2024 Insurance [facility] Care Teams Catholic Priest Relationship Specialty Start Date End Date Kurtis Rae MD [address] [place] [address] PCP - General Internal Medicine 06/07/20
--- OUTSIDE RECORDS SUMMARY | 2024-11-25 12:28 | XMS_ITS | Clinical Summary ---
Author Organization [facility] [address] Address [address] [place] [address] Phone Care Team Providers Care Optical Instrument Repairer Name Role Phone Kurtis Rae MD Primary Care Provider [phone] Allergies No known active allergies Encounters Date Type Department Care Team Description 10/05/2024 Telephone Gastroenterology - [address] [address] Stefany Min MD MISSING INFORMATION [...] Provider GI~PROCEDURE ORDERABLES F inal Result * [facility] SCREENING DIGITAL (08/26/2018 1:43 PM EDT) Anatomical Region Laterality Modality Mammography 08/26/2018 11:2 0 AM EDT Narrative 08/26/2018 1:43 PM EDT [facility] Diagnostic Imaging Department [address] [place] [id number] Patient: CHRIS TEJADA /Age/Sex: 1965 - 52 - F Unit#: [id number] Location/Status: [facility] CLI Mnemonic[facility] Ordering Physician: AVNI KOVACS MD [facility] Screening Digital - 08/26/18 - 1148 EXAM: [facility] Screening Digital EXAM DATE AND TIME: 08/26/2018 11:48 AM HISTORY: Screening. Right breast biopsy in 2012, pathology benign. COMPARISON: 01/07/17, 08/04/15, 06/10/14 TECHNIQUE: CC and MLO views of both breasts were obtained using full field digital mammography. Bilateral digital breast tomosynthesis was performed in the MLO projection. Computer aided detection with the [employer] 7.2-H was employed. TISSUE DENSITY: c. The [...] Routine screening mammogram BILATERAL in 1 year. [address]79, [address]4030 3342F, 7025F Dictating Physician: BARBIE RODAS MD Electronically Signed by: BARBIE RODAS MD Dic Date/Time: 08/26/18 1342 Sign date/Time: 08/26/18 1343 Procedure Note Barbie Rodas MD - 04/03/2022 [facility] Diagnostic Imaging Department [address] [place] [id number] Patient: CHRIS TEJADA /Age/Sex: 1965 - 52 - F Unit#: [id number] Location/Status: [facility] Mnemonic/Ordering Site: [facility] Ordering Physician: AVNI KOVACS MD [facility] Screening Digital - 08/26/18 - 1148 EXAM: [facility] Screening Digital EXAM DATE AND TIME: 08/26/2018 11:48 AM HISTORY: Screening. Right breast biopsy in 2012, pathology benign. COMPARISON: 01/07/17, 08/04/15, 06/10/14 TECHNIQUE: CC and MLO views of both breasts were obtained using fullfield digital mammography. Bilateral digital breast tomosynthesis was performedin the MLO projection. Computer aided detection with the [employer] 7.2-Hwas employed. TISSUE DENSITY: c. The breasts [...] Routine screening mammogram BILATERAL in 1 year. [id number], 33869 3342F, 7025F Dictating Physician: BARBIE RODAS MD Electronically Signed by: BARBIE RODAS MD Dic Date/Time: 08/26/18 1342 Sign date/Time: 08/26/18 1343 Avni Kovacs MD IMG BI PROCEDURES Final Result from Last 3 Months or Most Recently Relevant to Health Maintenance Insurance [facility] Care Teams Optical Instrument Repairer Relationship Specialty Start Date End Date Kurtis Rae MD [address] [place] [id number] PCP - General Internal Medicine 05/13/24
--- OUTSIDE RECORDS SUMMARY | 2024-11-25 12:28 | XMS_ITS | Clinical Summary ---
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 Name Role Phone Kurtis Rae MD Primary Care Provider [phone] Social History Tobacco Use Types Packs/Day Years Used Date Smoking Tobacco: Never Assessed Comments Unknown Sex and Gender Information Value Date Recorded Sex Assigned at Not on file Legal Sex Female 7:58 PM EST Gender Identity Not on file Sexual Orientation Not on file Plan of Treatment Not on file Medical Devices Not on file [facility] [employer] POS [employer] H[employer] POS BLUE [employer]OSS [place] HMO POS BL[employer]OSS [place] HMO POS BL[employer]OSS [place] HMO POS Care Teams [employer] 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 It is not the complete legal health record.[facility]
== END 2024-11-25 12:00 ==
LOC: HO.HKAS 11:28
PROVIDERS: PCP Internal Medicine; Visit Provider Internal Medicine Hypertension Specialist
DX: I10 Essential (primary) hypertension (principal)
CPT/HCPCS: 99212